=== PATIENT | female | born 1975 | race Caucasian/White ===

== ENCOUNTER 2020-01-01 16:33 | Emergency (ER) | payer BC ==
[~2020-01-01] VITALS: Ht 170.2 cm; Wt 88.6 kg
[2020-01-01] MEDS ORDERED: diphenhydrAMINE 25mg capsule PO ONE (17:05)
[2020-01-01] MEDS ORDERED: PROP10TA10 PO (17:13)
[2020-01-01] MEDS ORDERED: BREX0.5T PO (17:13)
[2020-01-01] MEDS ORDERED: BUPR-114 PO (17:13)
[2020-01-01 17:40] LABS: BASOPHILS % (AUTO) 0.5 % (0-1); EOSINOPHILS # (AUTO) 0.1 X10'3 (0-0.9); HEMATOCRIT 40.8 % (35.0-45.0); HEMOGLOBIN 13.4 g/dl (12.0-16.0); LYMPHOCYTES # (AUTO) 1.7 X10'3 (1.1-4.8); LYMPHOCYTES % (AUTO) 34.6 % (21-51); MEAN CORPUSCULAR HEMOGLOBIN 28.7 PG (27.0-31.0); MEAN CORPUSCULAR HGB CONC 32.8 g/dL (33.0-36.5); MEAN CORPUSCULAR VOLUME 87.3 FL (78-98); MONOCYTES # (AUTO) 0.2 X10'3 (0-0.9); MONOCYTES % (AUTO) 4.9 % (2-12); NEUTROPHILS # (AUTO) 2.9 X10'3 (1.8-7.7); PLATELET COUNT 246 X10'3 (140-440); RED BLOOD COUNT 4.68 X10'6 (4.20-5.60); RED CELL DISTRIBUTION WIDTH 14.6 % (11.5-14.5)
[2020-01-01 17:41] LABS: URINE HCG NEGATIVE (NEG)
[2020-01-01 17:56] LABS: ALANINE AMINOTRANSFERASE 24 U/L (12-78); ALBUMIN 4.2 G/DL (3.4-5.0); ALBUMIN/GLOBULIN RATIO 1.3 (1.1-1.5); ALKALINE PHOSPHATASE 35 IU/L (46-116); ANION GAP 8 (8-16); ASPARTATE AMINO TRANSFERASE 20 U/L (10-37); BLOOD UREA NITROGEN 10 MG/DL (7-18); BUN/CREATININE RATIO 11.6 (6.6-38.0); CALCIUM 9.3 MG/DL (8.5-10.1); CHLORIDE 103 MMOL/L (99-107); CREATININE 0.86 MG/DL (0.40-0.90); GLUCOSE 96 MG/DL (70-104); POTASSIUM 3.9 MMOL/L (3.5-5.1); SODIUM 139 MMOL/L (135-145); TOTAL CARBON DIOXIDE 27.8 MMOL/L (24-32); TOTAL PROTEIN 7.5 G/DL (6.4-8.2); eGFR 72 ML/MIN
[2020-01-01 17:58] LABS: URINE AMPHETAMINE SCREEN NEGATIVE (Neg); URINE BARBITUATE SCREEN NEGATIVE (Neg); URINE BENZODIAZEPINES SCREEN NEGATIVE (Neg); URINE CANNABINOID SCREEN POSITIVE (Neg); URINE COCAINE SCREEN NEGATIVE (Neg); URINE METHADONE SCREEN NEGATIVE (Neg); URINE OPIATE SCREEN NEGATIVE (Neg); URINE PHENCYCLIDINE SCREEN NEGATIVE (Neg)
[2020-01-01 18:05] LABS: ETHANOL < 0.010 GM/DL (0.0-0.010)
--- NOTE | 2020-01-01 19:24 | NUR ---
ALL BELONGINGS SENT HOME WITH PATIENT'S MOTHER ROLY WHO CAN BE CONTACTED AT [phone].
--- NOTE | 2020-01-01 22:24 | NUR ---
Patient sleeping comfortably, sitter at bedside.
--- NOTE | 2020-01-01 23:08 | NUR ---
Nurse to Nurse with JAVIER Camilo at [facility] Addendum: 01/01/20 at 2585 by BAM wrong patient
--- NOTE | 2020-01-02 06:45 | NUR ---
PT APPEAR SLEEPING AT THIS TIME ,RR EVEN AND UNLABORED,NO DISTRESS NOTED.WILL CONT TO MONITOR.
[2020-01-02] MEDS ORDERED: buPROPion SR 150mg tablet PO SCH (08:00)
[2020-01-02] MEDS ORDERED: propranolol 10mg tablet PO SCH (08:00)
--- NOTE | 2020-01-02 09:10 | NUR ---
pt medicated with food ,pt sitiing up and finishing her breakfast no distress noted,will cont to monitor.
[2020-01-02 09:49] VITALS: BP 107/70
--- NOTE | 2020-01-02 10:36 | NUR ---
pt sitting on the bed using phone at this time.
--- NOTE | 2020-01-02 11:54 | NUR ---
PTS MOM DROPPED OFF 2 BOOKS FOR HER TO READ.
--- NOTE | 2020-01-02 13:30 | NUR ---
FREDY AT BEDSIDE INTERVIEWING PT. PT ATE 95% OF LUNCH.
--- NOTE | 2020-01-02 16:18 | NUR ---
JAVIER ELISE CALLED TO SET UP RIDE. HE WILL HAVE SOMEONE COME GET HER AND ALSO BRING HER SOME CLOTHES. SHOULD TAKE ABOUT 15-20 MINUTES.
--- NOTE | 2020-01-02 16:56 | NUR ---
PT DISCHARGED HOME IN STABLE CONDITION, INST GIVEN. QUESTIONS ANSWERED. PT WAS UNABLE TO DISCHARGE THRU REGULAR DISCHARGE METHOD DUE TO SOMEONE ALREADY DISCHARGE PT.
== END 2020-01-02 16:55 ==
LOC: ER 16:34
DX: R45.851 Suicidal ideations (principal); F41.9 Anxiety disorder, unspecified; F32.9 Major depressive disorder, single episode, unspecified; F12.90 Cannabis use, unspecified, uncomplicated; Z72.89 Other problems related to lifestyle; Z79.899 Other long term (current) drug therapy
CPT/HCPCS: 36415; 80053; 80305; 80320; 81025; 84443; 85025; 99285; Q0163

== ENCOUNTER 2024-01-08 06:20 | Outpatient (CLI) | payer BC ==
[~2024-01-08 06:20] MED LIST: BREX0.5T PO; BUPR-114 PO; PROP10TA10 PO
[2024-01-08] MEDS ORDERED: GADOTERATE MEGLUMINE 7.5 MMOL/15 ML VIAL IV ONE (06:46)
[2024-01-08] MEDS ORDERED: LIDOcaine 1%/PF 5ML 10 MG/ML VIAL ONE (06:46)
[2024-01-08] MEDS ORDERED: LIDOcaine 1% 30ml preserv. free vial ONE (06:46)
[2024-01-08] MEDS ORDERED: iohexol 300 MG/1 ML 50ml polymer ONE (06:46)
== END 2024-01-08 23:59 | disposition home or self-care (01) ==
LOC: RAD 06:20
PROVIDERS: ATTEND Family Medicine Sports Medicine
DX: M25.552 Pain in left hip (principal); M16.12 Unilateral primary osteoarthritis, left hip; M25.452 Effusion, left hip; M76.02 Gluteal tendinitis, left hip; M70.62 Trochanteric bursitis, left hip; Z87.891 Personal history of nicotine dependence; Z79.84 Long term (current) use of oral hypoglycemic drugs; Z79.899 Other long term (current) drug therapy; Z90.49 Acquired absence of other specified parts of digestive tract; Z90.710 Acquired absence of both cervix and uterus; Z90.89 Acquired absence of other organs; Z98.84 Bariatric surgery status; Z98.891 History of uterine scar from previous surgery; Z98.890 Other specified postprocedural states
CPT/HCPCS: 27093; 73722; 77002; A9575; J3490; Q9967; 73525